=== PATIENT | female | born 1980 | race Caucasian/White ===

== ENCOUNTER 2017-05-19 09:01 | Emergency (ER) | payer BC ==
[2017-05-19 09:54] VITALS: BP 121/78
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
== END 2017-05-19 11:09 | disposition home or self-care (01) ==
LOC: UCCORT 09:01
DX: S00.11XA Contusion of right eyelid and periocular area, initial encounter (principal); S00.83XA Contusion of other part of head, initial encounter; S09.90XA Unspecified injury of head, initial encounter; W21.07XA Struck by softball, initial encounter; Y93.64 Activity, baseball; Y92.320 Baseball field as the place of occurrence of the external cause
CPT/HCPCS: 70450; 70486; 99211; G0463